=== PATIENT | male | born 1965 | race Caucasian/White ===

== ENCOUNTER 2020-04-09 13:49 | Emergency (ER) | payer OTHER ==
[~2020-04-09] VITALS: Ht 185.4 cm; Wt 149.7 kg
[2020-04-09 15:06] VITALS: BP 150/84
== END 2020-04-09 16:25 | disposition home or self-care (01) ==
LOC: ER 13:49
DX: S50.851A Superficial foreign body of right forearm, initial encounter (principal); Y64.1 Contaminated medical or biological substance, injected or used for immunization; Y82.8 Other medical devices associated with adverse incidents
CPT/HCPCS: 10120; 73090

== ENCOUNTER 2020-12-01 15:44 | Emergency (ER) | payer OTHER, MEDICAID ==
[~2020-12-01] VITALS: Ht 185.4 cm; Wt 145.1 kg
[2020-12-01 18:38] VITALS: BP 149/90
== END 2020-12-01 18:24 | disposition home or self-care (01) ==
LOC: ER 15:44
DX: U07.1 COVID-19 (principal); E11.9 Type 2 diabetes mellitus without complications; I10 Essential (primary) hypertension
CPT/HCPCS: 36415; 71045; 87426

== ENCOUNTER 2020-12-06 15:33 | Outpatient (CLI) | payer BC, MEDICAID ==
[2020-12-06] VITALS (11 sets, daily range): BP systolic 127–191; BP diastolic 78–100
[~2020-12-06] VITALS: Ht 30.5 cm; Wt 142.9 kg
[2020-12-06] MEDS ORDERED: BAMLANIVIMAB 700MG/200ML 200 ML IV ONE (16:45)
[2020-12-06] MEDS ORDERED: ACETAMINOPHEN 500 MG TAB PO ONE (17:30)
[2020-12-06] MEDS ORDERED: cloNIDine HCL 0.1 MG TAB PO ONE (18:00)
== END 2020-12-06 19:21 | disposition home or self-care (01) ==
LOC: MED 15:33
PROVIDERS: ATTEND Internal Medicine
DX: Z23 Encounter for immunization (principal); U07.1 COVID-19; E11.9 Type 2 diabetes mellitus without complications; I10 Essential (primary) hypertension
CPT/HCPCS: M0239; Q0239